=== PATIENT | female | born 1975 | race Caucasian/White ===

== ENCOUNTER 2016-10-03 10:49 | Emergency (ER) | payer BC ==
[2016-10-03] MEDS ORDERED: HYDROcodone/APAP 5-325MG 1 EACH TAB PO STA (11:06)
[2016-10-03] MEDS ORDERED: CYCLOBENZAPRINE 10 MG TAB PO STA (11:06)
--- NOTE | 2016-10-03 11:10 | ED ---
Back Pain HPI - General Chief Complaint: Back Pain/Injury Stated Complaint: back pain Time Seen by Provider: 10/03/16 11:01 Source: patient, RN notes reviewed Limitations: no limitations - History of Present Illness Initial Comments: 40-year-old female presents emergency Department chief complaint of right low back pain. Patient states that she fell the other day onto her right back region. Patient states that pain ever since. She states that she's had back pain at the past but never to this extent. She's tried or ibuprofen with no relief. Patient denies any bowel, bladder incontinence or retention. Denies any saddle anesthesias. She does admit to some pain areas down her right leg primarily. Patient states she has no abdominal discomfort including nausea vomiting. She states that she's having difficulty moving secondary to pain. She has increased pain with moving. She states she does do better if she lays flat. - Related Data Home Medications Medication Instructions Recorded Confirmed Lisinopril-Hctz 20-25 mg 1 tab PO DAILY 10/03/16 10/03/16 [Zestoretic 20-25] Previous Rx's Medication Instructions Recorded Cyclobenzaprine [Flexeril] 10 mg PO TID PRN #15 tab 10/03/16 Hydrocodone/Acetaminophen [[place] 1 tab PO Q6HR PRN #20 tab 10/03/16 5-325] Allergies Allergy/AdvReac Type Severity Reaction Status Date / Time No Known Allergies Allergy Verified 10/03/16 10:59 Review of Systems ROS Statement: Those systems with pertinent positive or pertinent negative responses have been documented in the HPI. ROS Other: All systems not noted in ROS Statement are negative. Past Medical History Past Medical History: Hypertension, Liver Disease Additional Past Medical History / Comment(s): fatty liver History of Any Multi-Drug Resistant Organisms: None Reported Past Surgical History: Adenoidectomy, Cholecystectomy, Tonsillectomy Additional Past Surgical History / Comment(s): shoulder surgery Past Anesthesia/Blood Transfusion Reactions: No Reported Reaction Past Psychological History: No Psychological Hx Reported Smoking Status: Never smoker Past Alcohol Use History: Occasional Past Drug Use History: None Reported - Past Family History Father Family Medical History: No Reported History General Exam Limitations: no limitations General appearance: alert, in no apparent distress, obese Neck exam: Present: normal inspection, full ROM. Absent: tenderness, meningismus, lymphadenopathy Respiratory exam: Present: normal lung sounds bilaterally. Absent: respiratory distress, wheezes, rales, rhonchi, stridor, chest wall tenderness Cardiovascular Exam: Present: regular rate, normal rhythm, normal heart sounds. Absent: systolic murmur, diastolic murmur, rubs, gallop, clicks GI/Abdominal exam: Present: soft, normal bowel sounds. Absent: distended, tenderness, guarding, rebound, rigid Extremities exam: Present: other (Lower extremity strength equal bilaterally process 5, neurovascular intact equal color equal warmth) Back exam: Present: full ROM (With moderate discomfort), tenderness (Lumbar right low back region), paraspinal tenderness, other (Pain with right shoulder leg raise). Absent: CVA tenderness (R), CVA tenderness (L), vertebral tenderness Neurological exam: Present: alert, oriented X3, CN II-XII intact, reflexes normal. Absent: motor sensory deficit Skin exam: Present: warm, dry, intact, normal color. Absent: rash Course Vital Signs 10/03/16 10:56 Temperature 98.1 F Pulse Rate 84 Respiratory 16 Rate Blood Pressure 137/62 O2 Sat by Pulse 98 Oximetry Medical Decision Making - Medical Decision Making 40-year-old female presented for back pain. There is no acute osseous lesion on x-ray. Patient will be discharged with pain medication, muscle relaxer. Patient will follow-up with primary care physician return parameters discussed. Patient has no red flag symptoms. Disposition Clinical Impression: Lumbar back pain Disposition: HOME SELF-CARE Condition: Stable Instructions: Acute Low Back Pain (ED) Additional Instructions: Please return to the Emergency Department if symptoms worsen or any other concerns. Prescriptions: Cyclobenzaprine [Flexeril] 10 mg PO TID PRN #15 tab PRN Reason: Muscle Spasm Hydrocodone/Acetaminophen [[place] 5-325] 1 tab PO Q6HR PRN #20 tab PRN Reason: Pain Time of Disposition: 11:55
--- NOTE | 2016-10-03 11:48 | XR ---
EXAM TYPE: LUMBAR SPINE X RAY SERIES COMPARISON: NONE HISTORY: Pain FINDINGS: Alignment is anatomic. The pedicles are intact. The transverse processes are intact. There is no s pondylolysis or spondylolisthesis. Degenerative change L5-S1 with facet arthropathy. IMPRESSION: 1. No acute process.
[2016-10-03 12:08] VITALS: BP 114/79; PULSE 75; RESP 18; TEMP 97.2
== END 2016-10-03 12:08 | disposition home or self-care (01) ==
LOC: EC 10:49
DX: M54.5 Low back pain (principal); W19.XXXA Unspecified fall, initial encounter; I10 Essential (primary) hypertension; Z79.899 Other long term (current) drug therapy
CPT/HCPCS: 72110; 99283

== ENCOUNTER → 2017-05-14 | Outpatient (CLI) | payer BC ==
[2017-05-14 20:58] LABS: ALT 55 U/L (9-52); AST 34 U/L (14-36); Alkaline Phosphatase 85 U/L (38-126); Anion Gap 11 mmol/L; Blood Urea Nitrogen 13 mg/dL (7-17); Calcium 9.4 mg/dL (8.4-10.2); Carbon Dioxide 25 mmol/L (22-30); Chloride 100 mmol/L (98-107); Cholesterol 149 mg/dL (<200); Glucose 99 mg/dL (74-99); HDL Cholesterol 58 mg/dL (40-60); Non-African American GFR(MDRD) >60 (>60 ml/min/1.73 sqM); Potassium 5.8 mmol/L (3.5-5.1); Sodium 136 mmol/L (137-145); Total Bilirubin 0.8 mg/dL (0.2-1.3)
== END ==
LOC: MMGSC 09:27
PROVIDERS: ATTEND Family Medicine
DX: I10 Essential (primary) hypertension (principal); R79.89 Other specified abnormal findings of blood chemistry
CPT/HCPCS: 36415; 80053; 80061; 84443

== ENCOUNTER → 2017-07-09 | Outpatient (CLI) | payer BC ==
[2017-07-09 21:10] LABS: Bilirubin, Delta 0.3 mg/dL (0.0-0.2); Total Bilirubin 0.7 mg/dL (0.2-1.3); Total Protein 7.9 g/dL (6.3-8.2)
== END | disposition home or self-care (01) ==
LOC: MMGSC 09:29
PROVIDERS: ATTEND Physician Assistant
DX: R94.5 Abnormal results of liver function studies (principal)
CPT/HCPCS: 36415; 80076

== ENCOUNTER → 2017-07-20 | Outpatient (CLI) | payer BC ==
[2017-07-21 04:06] LABS: Prolactin 4.2 ng/mL (2.8-29.2)
== END | disposition home or self-care (01) ==
LOC: MMGSC 12:32
PROVIDERS: ATTEND Family Medicine
DX: N93.8 Other specified abnormal uterine and vaginal bleeding (principal)
CPT/HCPCS: 36415; 83001; 83002; 84146

== ENCOUNTER → 2018-01-21 | Outpatient (CLI) | payer BC ==
[2018-01-21 10:13] LABS: Albumin 4.3 g/dL (3.5-5.0); Bilirubin, Delta 0.3 mg/dL (0.0-0.2); Bilirubin,Unconjugated 0.4 mg/dL (0.0-1.1); Total Bilirubin 0.7 mg/dL (0.2-1.3); Total Protein 7.2 g/dL (6.3-8.2)
== END ==
LOC: LABWHC1 09:32
PROVIDERS: ATTEND Physician Assistant
DX: R74.8 Abnormal levels of other serum enzymes (principal)
CPT/HCPCS: 36415; 80076

== ENCOUNTER → 2018-09-28 | Outpatient (CLI) | payer BC ==
[2018-09-28 18:14] LABS: Albumin 4.5 g/dL (3.80-4.90); Albumin/Globulin Ratio 1.67 (1.20-2.10); Bilirubin, Conjugated 0.3 mg/dL (0.20-0.40); Bilirubin,Unconjugated 0.5 mg/dL; Globulin 2.7 g/dL (1.6-3.3); Total Bilirubin 0.8 mg/dL (0.3-1.2); Total Protein 7.2 g/dL (6.2-8.2)
== END ==
LOC: LABWHC1 11:42
PROVIDERS: ATTEND Physician Assistant
DX: R94.5 Abnormal results of liver function studies (principal)
CPT/HCPCS: 36415; 80076

== ENCOUNTER 2019-04-22 18:18 | Emergency (ER) | payer BC ==
[2019-04-22] MEDS ORDERED: LIDOCAINE 5% PATCH TOPICAL STA (19:01)
[2019-04-22] MEDS ORDERED: CYCLOBENZAPRINE 10MG STARTER 3 TAB BTL PO STA ×2 (19:01→19:57)
[2019-04-22] MEDS ORDERED: KETOROLAC 30 MG/ML 1 ML VIAL IM STA (19:01)
[2019-04-22 19:26] VITALS: RESP 18
--- NOTE | 2019-04-22 19:31 | ED ---
Back Pain HPI - General Chief Complaint: Back Pain/Injury Stated Complaint: LOWER BACK PAIN X 7 DAYS Time Seen by Provider: 04/22/19 18:40 Source: patient Limitations: no limitations - History of Present Illness Initial Comments: Patient is a 43-year-old female presenting to emergency Department with a chief complaint of back pain. Patient reports a history of chronic back pain with occasional exacerbations. Patient reports the pain started approximately one week ago after she wore flat shoes. Patient reports this typically occurs when she wears flat shoes. Patient reports the pain is located in the right paraspinal region and radiates along the posterior aspect of the right leg to the popliteal region. Patient denies any numbness or tingling. Patient denies saddle paresthesia, urinary or bladder incontinence. No red flags. Patient denies taking medication to alleviate his symptoms. Patient reports pain is alleviated rest and exacerbated with back flexion. - Related Data Home Medications Medication Instructions Recorded Confirmed Lisinopril-Hctz 20-25 mg 1 tab PO DAILY 10/03/16 10/03/16 [Zestoretic 20-25] Previous Rx's Medication Instructions Recorded Cyclobenzaprine [Flexeril] 10 mg PO TID PRN #15 tab 10/03/16 Hydrocodone/Acetaminophen [[place] 1 tab PO Q6HR PRN #20 tab 10/03/16 5-325] Cyclobenzaprine [Flexeril] 10 mg PO TID PRN #15 tab 04/22/19 Allergies Allergy/AdvReac Type Severity Reaction Status Date / Time No Known Allergies Allergy Verified 10/03/16 12:06 Review of Systems ROS Statement: Those systems with pertinent positive or pertinent negative responses have been documented in the HPI. ROS Other: All systems not noted in ROS Statement are negative. Past Medical History Past Medical History: Hypertension, Liver Disease Additional Past Medical History / Comment(s): fatty liver History of Any Multi-Drug Resistant Organisms: None Reported Past Surgical History: Adenoidectomy, Cholecystectomy, Tonsillectomy Additional Past Surgical History / Comment(s): shoulder surgery Past Anesthesia/Blood Transfusion Reactions: No Reported Reaction Past Psychological History: No Psychological Hx Reported Smoking Status: Never smoker Past Alcohol Use History: Occasional Past Drug Use History: None Reported - Past Family History Father Family Medical History: No Reported History General Exam Limitations: no limitations General appearance: alert, in no apparent distress Head exam: Present: atraumatic, normocephalic, normal inspection Eye exam: Present: normal appearance, PERRL, EOMI Pupils: Present: normal accommodation ENT exam: Present: normal exam, mucous membranes moist, normal external ear exam Neck exam: Present: normal inspection, full ROM Respiratory exam: Present: normal lung sounds bilaterally Cardiovascular Exam: Present: regular rate, normal rhythm, normal heart sounds GI/Abdominal exam: Present: soft. Absent: tenderness, guarding Extremities exam: Present: normal inspection, full ROM, other (+2 dorsalis pedis and posterior tibialis bilaterally) Back exam: Present: normal inspection, paraspinal tenderness (Right Lumbosacral), other (Positive leg raise test.). Absent: full ROM (Limited range of motion with flexion due to pain), CVA tenderness (R), CVA tenderness (L), muscle spasm, rash noted Neurological exam: Present: alert, oriented X3 Psychiatric exam: Present: normal affect, normal mood Skin exam: Present: warm, intact, normal color Course Vital Signs 04/22/19 04/22/19 04/22/19 18:35 19:40 20:20 Temperature 99.2 F 98.9 F 98.9 F Pulse Rate 105 H 80 80 Respiratory 18 18 18 Rate Blood Pressure 119/87 121/84 121/84 O2 Sat by Pulse 96 98 98 Oximetry Medical Decision Making - Medical Decision Making Patient is a 43-year-old female presenting to emergency Department with a chief complaint of back pain. Based on history and physical examination this appears to be an exacerbation of her chronic back pain. Patient was given Lidoderm patch, Toradol and Flexeril. On reevaluation patient appears to feel much better and is ready go home. Patient will be discharged with Flexeril. Patient advised to follow-up with orthopedics for further management. Strict return parameters were thoroughly discussed the patient was understanding and agreeable. Case discussed with physician. Disposition Clinical Impression: Mechanical back pain Disposition: HOME SELF-CARE Condition: Stable Instructions (If sedation given, give patient instructions): Acute Low Back Emigdio n (ED) Additional Instructions: Please follow up with orthopedics. Please return to emergency department if symptoms worsen. Please take prescribed medication as directed. Prescriptions: Cyclobenzaprine [Flexeril] 10 mg PO TID PRN #15 tab PRN Reason: Muscle Spasm Is patient prescribed a controlled substance at d/c from ED?: No Referrals: Jennifer Mcgregor MD [Primary Care Provider] - 1-2 days Elías Marrero MD [STAFF PHYSICIAN] - 1-2 days Time of Disposition: 19:31
[2019-04-22 19:41] VITALS: BP 121/84; PULSE 80; TEMP 98.9
== END 2019-04-22 20:22 | disposition home or self-care (01) ==
LOC: EC 18:18
DX: M54.5 Low back pain (principal); G89.29 Other chronic pain; I10 Essential (primary) hypertension; Z79.899 Other long term (current) drug therapy
CPT/HCPCS: 99283; 96372; J1885

== ENCOUNTER → 2022-03-18 | Outpatient (CLI) | payer BC ==
--- NOTE | 2022-03-18 10:37 | US ---
EXAMINATION TYPE: US abdomen complete DATE OF EXAM: 03/18/2022 COMPARISON: CT abdomen and pelvis 2012 CLINICAL HISTORY: RUQ PAIN R10.11. Gb removed. Right side pain that comes and goes. EXAM MEASUREMENTS: Liver Length: 15.8 cm CBD: 0.5 cm Spleen: 10.0 cm Right Kidney: 9.2 x 4.5 x 4.5 cm Left Kidney: 9.9 x 5.1 x 5.2 cm Pancreas: Obscured by bowel gas Liver: Heterogenous, coarse Gallbladder: Surgically absent Evidence for sonographic Rhodes's sign: neg CBD: wnl Spleen: wnl Right Kidney: No hydronephrosis or masses seen Left Kidney: No hydronephrosis or masses seen Upper IVC: wnl Abd Aorta: Proximal obscured by bowel gas The visualized liver is heterogeneously hyperechoic. Evaluation for focal masses suboptimal due to th e heterogeneity. No surrounding ascites. Finding likely on basis of persistent fatty infiltrative hep atocellular disease. No biliary dilatation. The intrahepatic portion of the IVC and proximal , mid, a nd distal abdominal aorta are within normal limits. Gallbladder surgically absent. Suboptimal evalu ation of the pancreas due to overlying bowel gas. The spleen is unremarkable. Kidneys are symmetric and free of hydronephrosis. No renal lesions are seen. IMPRESSION: No significant new or acute findings are present. Suboptimal evaluation of pancreas noted .
== END | disposition home or self-care (01) ==
LOC: RADUSWWP 07:25
PROVIDERS: ATTEND Family Medicine
DX: R10.11 Right upper quadrant pain (principal)
CPT/HCPCS: 76700

== ENCOUNTER → 2022-09-11 | Outpatient (CLI) | payer BC ==
--- NOTE | 2022-09-14 07:41 | MM ---
Reason for Exam: Screening (asymptomatic). Last mammogram was performed 9 year(s) and 1 month(s) ago. Patient History: Menarche at age 13. First Full-Term at age 29. Premenopausal. Currently using Progesterone, starting at age 44. Risk Values: Frances[place] 5 year model risk: 0.9%. NCI Lifetime model risk: 11.7%. Prior Study Comparison: 08/15/2013 Bilateral Screening Mammogram, [facility]. Tissue Density: There are scattered fibroglandular densities. Findings: Analyzed By CAD. There is no suspicious new group of microcalcifications or new suspicious mass in either breast. Overall Assessment: Negative, BI-RAD 1 Management: Screening Mammogram of both breasts in 1 year. A clinical breast exam by your physician is recommended on an annual basis and results should be correlated with mammographic findings. Electronically signed and approved by: Tom Gerardo M.D.
== END | disposition home or self-care (01) ==
LOC: RADMAMWWP 07:33
PROVIDERS: ATTEND Obstetrics & Gynecology
DX: Z12.31 Encounter for screening mammogram for malignant neoplasm of breast (principal)
CPT/HCPCS: 77063; 77067

== ENCOUNTER → 2023-02-20 | Outpatient (CLI) | payer BC | END | disposition home or self-care (01) | LOC: LABWHC1 10:20 | PROVIDERS: ATTEND Family Medicine | DX: E11.9 Type 2 diabetes mellitus without complications (principal) | CPT/HCPCS: 36415; 83036 ==

== ENCOUNTER → 2023-10-21 | Outpatient (CLI) | payer BC ==
[2023-10-21 14:30] LABS: African American GFR (CKD) 74 (>60 ml/min/1.73 sqM); Blood Urea Nitrogen 16 mg/dL (7-17); Non-African American GFR(CKD) 64 (>60 ml/min/1.73 sqM)
--- NOTE | 2023-10-21 15:15 | CT ---
EXAMINATION TYPE: CT abdomen w con DATE OF EXAM: 10/21/2023 COMPARISON: CT abdomen and pelvis on 11/23/2012. HISTORY: Right upper quadrant pain. CT DLP: 1329 mGycm Automated exposure control for dose reduction was used. TECHNIQUE: Helical acquisition of images was performed from the lung bases through the top of iliac crest to include entire abdomen. CONTRAST: Performed with Oral Contrast and with IV Contrast, patient injected with 100 mL of Isovue 300. FINDINGS: LUNG BASES: Unchanged 4 mm subpleural nodule within the right middle lobe. The lung bases otherwise a ppear clear. There are no pleural or pericardial effusions. LIVER/GB: There is mild diffuse decreased attenuation of the liver which is compatible fatty liver in filtration. The gallbladder surgically absent. There is no biliary ductal dilation PANCREAS: No significant abnormality is seen. SPLEEN: No significant abnormality is seen. ADRENALS: No significant abnormality is seen. KIDNEYS: No significant abnormality is seen. BOWEL: No significant abnormality is seen. LYMPH NODES: No significant abnormality is seen. OSSEOUS STRUCTURES: No significant abnormality is seen. FREE AIR: No free air is visualized. OTHER: Nothing significant. IMPRESSION: 1. NO ACUTE PROCESS SEEN WITHIN THE ABDOMEN. 2. PRIOR CHOLECYSTECTOMY. 3. MILD HEPATIC STEATOSIS.
== END | disposition home or self-care (01) ==
LOC: RADCTMAIN 13:23
PROVIDERS: ATTEND Family Medicine
DX: K76.0 Fatty (change of) liver, not elsewhere classified (principal); Z90.49 Acquired absence of other specified parts of digestive tract
CPT/HCPCS: 82565; 84520; 74160; 36415; Q9967

== ENCOUNTER → 2023-11-04 | Outpatient (CLI) | payer BC ==
--- NOTE | 2023-11-05 07:28 | MM ---
Reason for Exam: Screening (asymptomatic). Last mammogram was performed 1 year(s) and 1 month(s) ago. Patient History: Menarche at age 13. First Full-Term at age 29. Premenopausal. Currently using Progesterone, starting at age 44. Risk Values: Frances[place] 5 year model risk: 1.0%. NCI Lifetime model risk: 11.6%. Prior Study Comparison: 08/15/2013 Bilateral Screening Mammogram, [facility]. 09/11/2022 Bilateral MG 3D screening mammo w/cad, [facility]. Tissue Density: The breast tissue is almost entirely fat. Findings: Analyzed By CAD. The pattern is symmetrical. No significant interval change. No suspicious groups of microcalcifications, spiculated or lobular masses, architectural distortion or other secondary signs of malignancy are mammographically apparent. Overall Assessment: Negative, BI-RAD 1 Management: Screening Mammogram of both breasts in 1 year. A negative mammogram report should not preclude additional follow up of suspicious palpable abnormalities. Patient should continue monthly self breast exam. A clinical breast exam by your physician is recommended on an annual basis and results should be correlated with mammographic findings. Electronically signed and approved by: Villa Cardenas D.O. Radiologis
== END | disposition home or self-care (01) ==
LOC: RADMAMWWP 16:07
PROVIDERS: ATTEND Obstetrics & Gynecology
DX: Z12.31 Encounter for screening mammogram for malignant neoplasm of breast (principal)
CPT/HCPCS: 77063; 77067